=== PATIENT | male | born 1965 | race Caucasian/White ===

== ENCOUNTER 2022-12-10 05:47 | Day surgery (SDC) | payer OTHER ==
[~2022-12-10] VITALS: Ht 182.9 cm; Wt 98.4 kg
[2022-12-10] VITALS (15 sets, daily range): BP systolic 119–154; BP diastolic 76–94
[~2022-12-10 05:47] MED LIST: ATOR10 PO; BACLOFEN5 M3 PO; BUPRENORPHINE HC2 MG SL; DOC250 PO; FERSU300; JARDIANCE25 MG PO; LISI10 PO; LYRICA PO; MULVITA PO; PANT40 PO; PIOG15 PO; VITAMIN D310 MC4 PO
[2022-12-10] MEDS ORDERED: CYCL10 PO (06:37)
--- NOTE | 2022-12-10 07:37 | NUR ---
PRE-OP NOTE PT A&OX4, BREATHING RA, CALM, NO ACUTE COCNERNS. PT GLASSES WERE STOWED IN PT BELONGINGS BAG BY PATIENT. Ambulatory in Day Surgery Patient confirms NPO status and agrees with scheduled surgery. Patient States Post-Procedure ride home has been arranged. Pre-Op teaching done. Pt verbalizes understanding.
--- NOTE | 2022-12-10 11:40 | NUR ---
Pt awake and alert, VSS, Lungs CTA. Pt has pain at 4/10, started at 7/10, pain meds given. Pt and spouse taught discharge instructions and verbalized understanding. Written instructions given to patient. Lap sites x 3 are CDI. All patient belongings returned. Pt discharged via wheelchair to home.
== END 2022-12-10 22:48 | disposition home or self-care (01) ==
LOC: ORSCMMR 05:47 → ORD 07:30 → ORSCMMR 07:30
DX: K40.20 Bilateral inguinal hernia, without obstruction or gangrene, not specified as recurrent (principal); I10 Essential (primary) hypertension; E11.9 Type 2 diabetes mellitus without complications; K21.9 Gastro-esophageal reflux disease without esophagitis; Z79.899 Other long term (current) drug therapy; F41.9 Anxiety disorder, unspecified; F32.A Depression, unspecified; F17.210 Nicotine dependence, cigarettes, uncomplicated
CPT/HCPCS: 49650; S2900; 82947; A9270; C1781; J0690; J1100; J1170; J1885; J2250; J2371; J2405; J2704; J3010; J7120